=== PATIENT | female | born 1995 | race American Indian/Alaskan Native ===

== ENCOUNTER 2017-01-03 16:04 | Emergency (ER) | payer SELFPAY ==
[2017-01-03 16:36] VITALS: BP 122/78
[2017-01-03] MEDS ORDERED: NORCO 7.5/325 PO ONE (21:10)
--- NOTE | 2017-01-03 21:16 | Emergency Department Report ---
- General Chief complaint: Skin/Abscess/Foreign Body Stated complaint: BOIL UNDER LEFT ARMPIT Time Seen by Provider: 01/03/17 20:21 Source: patient Mode of arrival: Ambulatory Limitations: No Limitations - History of Present Illness Initial comments: 21-year-old female that presents with left axillary area. Patient stated has been noticed that 2 weeks ago for the past week it has gotten worse and bigger. Patient denies any fever, chills, pus or drainage. Patient also said his symptoms include pain, redness, swelling to the area. Patient denies any numbness or tingling sensation in extremities. Patient denies chest pain or shortness of breath. Patient's mother currently at bedside. Patient does seem toxic or ill in appearance. No signs of distress noted. Patient denies any chance of her being this time. MD complaint: abscess/boil (5 cm left axilla ) -: Gradual, week(s) (2) Location: LUE (left axilla) Severity: moderate Severity scale (0 -10): 8 Quality: aching Consistency: constant Worsens with: none Context: none Associated symptoms: denies other symptoms Treatments Prior to Arrival: none - Related Data Previous Rx's Medication Instructions Recorded Last Taken Type Sulfamethoxazole/Trimethoprim 1 each PO BID 7 Days 01/03/17 Unknown Rx [Bactrim DS TAB] traMADol [Ultram] 50 mg PO Q6HR PRN #12 tablet 01/03/17 Unknown Rx Allergies Allergy/AdvReac Type Severity Reaction Status Date / Time No Known Allergies Allergy Unverified 01/03/17 21:41 Abscess Boil HPI - HPI Chief Complaint: Skin/Abscess/Foreign Body Stated Complaint: BOIL UNDER LEFT ARMPIT Time Seen by Provider: 01/03/17 20:21 Home Medications: Previous Rx's Medication Instructions Recorded Last Taken Type Sulfamethoxazole/Trimethoprim 1 each PO BID 7 Days 01/03/17 Unknown Rx [Bactrim DS TAB] traMADol [Ultram] 50 mg PO Q6HR PRN #12 tablet 01/03/17 Unknown Rx Allergies/Adverse Reactions: Allergies Allergy/AdvReac Type Severity Reaction Status Date / Time No Known Allergies Allergy Unverified 01/03/17 21:41 ED Review of Systems ROS: Stated complaint: BOIL UNDER LEFT ARMPIT Other details as noted in HPI Constitutional: denies: chills, fever Eyes: denies: eye pain, eye discharge, vision change ENT: denies: ear pain, throat pain Respiratory: denies: cough, shortness of breath, wheezing Cardiovascular: denies: chest pain, palpitations Endocrine: no symptoms reported Gastrointestinal: denies: abdominal pain, nausea, diarrhea Genitourinary: denies: urgency, dysuria, discharge Musculoskeletal: denies: back pain, joint swelling, arthralgia Skin: denies: rash, lesions Neurological: denies: headache, weakness, paresthesias Psychiatric: denies: anxiety, depression Hematological/Lymphatic: denies: easy bleeding, easy bruising ED Past Medical Hx - Past Medical History Previous Medical History?: No - Surgical History Past Surgical History?: No - Social History Smoking Status: Never Smoker Substance Use Type: None, Marijuana - Medications Home Medications: Home Medications Medication Instructions Recorded Confirmed Last Taken Type Sulfamethoxazole/Trimethoprim 1 each PO BID 7 Days 01/03/17 Unknown Rx [Bactrim DS TAB] traMADol [Ultram] 50 mg PO Q6HR PRN #12 tablet 01/03/17 Unknown Rx ED Physical Exam - General Limitations: No Limitations General appearance: alert, in no apparent distress - Head Head exam: Present: atraumatic, normocephalic - Eye Eye exam: Present: normal appearance - ENT ENT exam: Present: normal exam, normal orophraynx, mucous membranes moist, TM's normal bilaterally - Neck Neck exam: Present: normal inspection - Respiratory Respiratory exam: Present: normal lung sounds bilaterally. Absent: respiratory distress - Cardiovascular Cardiovascular Exam: Present: regular rate, normal rhythm. Absent: systolic murmur, diastolic murmur, rubs, gallop - GI/Abdominal GI/Abdominal exam: Present: soft, normal bowel sounds - Extremities Exam Extremities exam: Present: normal inspection - Back Exam Back exam: Present: normal inspection - Neurological Exam Neurological exam: Present: alert, oriented X3 - Psychiatric Psychiatric exam: Present: normal affect, normal mood - Skin Skin exam: Present: warm, dry, intact, normal color, erythema, other (edema left axilla area). Absent: rash - Other Other exam information: 5 cm abscess to the left axilla. No pus. No drainage. Positive Erythema. Swelling to the site. ED Course Vital Signs 01/03/17 16:34 Temperature 98.3 F Pulse Rate 102 H Respiratory 16 Rate Blood Pressure 122/78 O2 Sat by Pulse 100 Oximetry Vital Signs 01/03/17 16:34 Temperature 98.3 F Pulse Rate 102 H Respiratory 16 Rate Blood Pressure 122/78 O2 Sat by Pulse 100 Oximetry - I & D Left Upper Chest Type of Procedure: Complex Site: 3 cm Blade Size: 11 I & D Procedure: betadine prep, sterile drapes applied, sterile dressing applied , gauze wick placed Progress: Under sterile procedure, I used Betadine to cleanse the area. I then injected 5 % Marcaine with 26 gauge 1-/2 needle with a total of 6 mL the left axilla area. With an 11 blade I made an incision about 3cm to the area. I irrigated with normal saline total volume of 20 mL to the area. Purulent drainage about 5 cc noted with minimal bleeding. 1/4 iodoform packing to the site. I did clean the area and applied sterile sterile 4 x 4 dressing to the site. Patient tolerated procedure well. No signs of distress noted. ED Medical Decision Making - Medical Decision Making ED course: 21-year-old female that presents with 5 cm abscess to the left axilla area 1- patient received [place] 7.5 by mouth in the ED. 2- under sterile procedure, I&D was performed to the site with minimal bleeding. Patient told procedure well. No signs of distress noted. 3- at the time of discharge the patient was prescribed Bactrim and Ultram. Patient was instructed not to use heavy machinery while taking the Ultram due to sedation. 4-at the time of discharge the patient does not seem toxic or ill in appearance. No signs of distress noted. 5-Patient agreed to discharge and treatment plan. I instructed the patient to finish full course of antibiotics as prescribed. 6-Patient denied any further questions at the time of discharge. Critical care attestation.: If time is entered above; I have spent that time in minutes in the direct care of this critically ill patient, excluding procedure time. ED Disposition Clinical Impression: Abscess Disposition: DISCHARGED TO HOME OR SELFCARE Is pt being admited?: No Does the pt Need Aspirin: No Condition: Stable Instructions: Tramadol (By mouth), Abscess Incision and Drainage (ED), Acute Wound Care (ED) Additional Instructions: Please follow-up with your primary care doctor in 3-5 days. Return to [facility] and 2 days for packing removal. Take full course of antibiotics as prescribed. His symptoms worsen such as increased swelling, redness, increased pus and drainage, fever or chills report back to emergency room. Prescriptions: Sulfamethoxazole/Trimethoprim [Bactrim DS TAB] 1 each PO BID 7 Days traMADol [Ultram] 50 mg PO Q6HR PRN #12 tablet PRN Reason: Pain Referrals: PRIMARY CARE, [Primary Care Provider] - 3-5 Days [facility] [Outside] - 3-[address] [facility] [Outside] - 3-5 Days Forms: Work/School Release Form(ED)
[2017-01-03] MEDS ORDERED: MARCAINE 0.5% INFILTRATI NR (22:00)
== END 2017-01-03 22:44 | disposition home or self-care (01) ==
LOC: ED 16:04
DX: L02.213 Cutaneous abscess of chest wall (principal); F12.90 Cannabis use, unspecified, uncomplicated

== ENCOUNTER 2017-01-07 07:26 | Emergency (ER) | payer SELFPAY ==
[2017-01-07 07:41] VITALS: BP 127/84
--- NOTE | 2017-01-07 08:08 | Emergency Department Report ---
ED Recheck HPI - General Chief Complaint: Recheck/Abnormal Lab/Rx Stated Complaint: FOLLOW-UP Time Seen by Provider: 01/07/17 07:44 Source: patient Mode of arrival: Ambulatory Limitations: No Limitations - History of Present Illness Initial Comments: This is a 21-year-old female that presents with packing removal from an I&D that was done 4 days ago under left axilla area. Patient denies any fever, pus , drainage, chest pain, nausea vomiting, numbness or tingling. Patient stated is currently taking antibiotics but does not remember the name. Patient denies any pain. Patient does not seem toxic or ill in appearance. No signs of rashes noted. MD Complaint: wound re-check (packing removal) -: Gradual, days(s) (4) Initial Visit For: abscess (left axilla) Returns Today for: wound recheck Symptoms Since Prior Visit: no new symptoms, improved Associated Symptoms: none. denies: fever, chills, chest pain, shortness of breath, rash, malaise, nasuea, abdominal pain - Related Data Previous Rx's Medication Instructions Recorded Last Taken Type Sulfamethoxazole/Trimethoprim 1 each PO BID 7 Days 01/03/17 Unknown Rx [Bactrim DS TAB] traMADol [Ultram] 50 mg PO Q6HR PRN #12 tablet 01/03/17 Unknown Rx Allergies Allergy/AdvReac Type Severity Reaction Status Date / Time No Known Allergies Allergy Unverified 01/03/17 21:41 ED Review of Systems ROS: Stated complaint: FOLLOW-UP Other details as noted in HPI Constitutional: denies: chills, fever Eyes: denies: eye pain, eye discharge, vision change ENT: denies: ear pain, throat pain Respiratory: denies: cough, shortness of breath, wheezing Cardiovascular: denies: chest pain, palpitations Endocrine: no symptoms reported Gastrointestinal: denies: abdominal pain, nausea, diarrhea Genitourinary: denies: urgency, dysuria, discharge Musculoskeletal: denies: back pain, joint swelling, arthralgia Skin: denies: rash, lesions Neurological: denies: headache, weakness, paresthesias Psychiatric: denies: anxiety, depression Hematological/Lymphatic: denies: easy bleeding, easy bruising ED Past Medical Hx - Past Medical History Previous Medical History?: No - Surgical History Past Surgical History?: No - Social History Smoking Status: Never Smoker Substance Use Type: None - Medications Home Medications: Home Medications Medication Instructions Recorded Confirmed Last Taken Type Sulfamethoxazole/Trimethoprim 1 each PO BID 7 Days 01/03/17 Unknown Rx [Bactrim DS TAB] traMADol [Ultram] 50 mg PO Q6HR PRN #12 tablet 01/03/17 Unknown Rx ED Physical Exam - General Limitations: No Limitations General appearance: alert, in no apparent distress - Head Head exam: Present: atraumatic, normocephalic - Eye Eye exam: Present: normal appearance - ENT ENT exam: Present: mucous membranes moist - Neck Neck exam: Present: normal inspection - Respiratory Respiratory exam: Present: normal lung sounds bilaterally. Absent: respiratory distress - Cardiovascular Cardiovascular Exam: Present: regular rate, normal rhythm. Absent: systolic murmur, diastolic murmur, rubs, gallop - GI/Abdominal GI/Abdominal exam: Present: soft, normal bowel sounds - Extremities Exam Extremities exam: Present: normal inspection - Back Exam Back exam: Present: normal inspection - Neurological Exam Neurological exam: Present: alert, oriented X3 - Psychiatric Psychiatric exam: Present: normal affect, normal mood - Skin Skin exam: Present: warm, dry, intact, normal color. Absent: rash - Other Other exam information: 3 cm open wound to the left axilla status post I&D with no sign of purulent drainage, erythema, tenderness, swelling. ED Course Vital Signs 01/07/17 07:38 Temperature 97.7 F Pulse Rate 68 Respiratory 16 Rate Blood Pressure 127/84 O2 Sat by Pulse 99 Oximetry ED Recheck MDM - Medical Decision Making ED course: 89-year-old female that presents with packing removal of a 3 cm open wound to the left axillary status post I&D 1- I instructed the patient to wash area with soap and water 3-4 times a day. I also showed the patient to put a clean dressing to the left axilla. 2- patient stated is currently taking antibiotics but doesn't remedy name. 3- I also instructed the patient to observe symptoms of purulent drainage, redness, fever, chills, uncontrollable pain and to report back to emergency room. 4- at the time of discharge the patient does not seem toxic or ill in appearance. No signs of distress noted. Patient agrees to discharge plan. No further questions noted by the patient. 5- Time of d/c a sterile dressing was applied to the area. Patient was instructed to remove the dressing and wash area with soap and water. Critical care attestation.: If time is entered above; I have spent that time in minutes in the direct care of this critically ill patient, excluding procedure time. ED Disposition Clinical Impression: Encounter for wound re-check Disposition: DISCHARGED TO HOME OR SELFCARE Is pt being admited?: No Does the pt Need Aspirin: No Condition: Stable Instructions: Acute Wound Care (ED) Additional Instructions: Observe symptoms of purulent drainage, redness, fever, chills, uncontrollable pain and to report back to emergency room if these symptoms are present. Follow-up with your primary care doctor in 3-5 days. Referrals: PRIMARY CARE, [Primary Care Provider] - 3-5 Days [facility] [Outside] - 3-5 Days Forms: Work/School Release Form(ED)
== END 2017-01-07 08:25 | disposition home or self-care (01) ==
LOC: ED 07:26
DX: Z48.00 Encounter for change or removal of nonsurgical wound dressing (principal)

== ENCOUNTER 2017-09-30 12:38 | Emergency (ER) | payer SELFPAY ==
[2017-09-30 14:44] LABS: Bacteria,Urine 1+ /HPF (Negative); Bilirubin,Urine NEG (Negative); Blood,Urine NEG (Negative); Color,Urine Yellow (Yellow); Mucus,Urine FEW /HPF; Nitrite,Urine NEG (Negative); Protein,Urine <15 mg/dL mg/dL (Negative); RBC,Urine < 1.0 /HPF (0.0-6.0); Urobilinogen,Urine < 2.0 mg/dL (<2.0); WBC,Urine < 1.0 /HPF (0.0-6.0)
[2017-09-30 14:45] LABS: HCG Qualitative,Urine Negative (Negative)
[2017-09-30 16:59] LABS: Basophils # (Auto) 0.1 K/mm3 (0.0-0.1); Basophils % (Auto) 1.1 % (0.0-1.8); Eosinophils # (Auto) 0.1 K/mm3 (0.0-0.4); Eosinophils % (Auto) 0.9 % (0.0-4.3); Hematocrit 41.8 % (30.3-42.9); Hemoglobin 13.7 gm/dl (10.1-14.3); Lymphocytes # (Auto) 2.5 K/mm3 (1.2-5.4); Lymphocytes % (Auto) 34.5 % (13.4-35.0); Mean Corpuscular HGB Conc 33 % (30-34); Mean Corpuscular Hemoglobin 31 pg (28-32); Mean Corpuscular Volume 94 fl (79-97); Monocytes # (Auto) 0.5 K/mm3 (0.0-0.8); Monocytes % (Auto) 6.4 % (0.0-7.3); Platelet Count 322 K/mm3 (140-440); Red Blood Count 4.44 M/mm3 (3.65-5.03); Red Cell Distribution Width 13.4 % (13.2-15.2)
[2017-09-30 17:20] LABS: Albumin 4.4 g/dL (3.9-5); BUN/Creatinine Ratio 15; Blood Urea Nitrogen 9 mg/dL (7-17); Calcium 9.8 mg/dL (8.4-10.2); Hemolysis Index 147
[2017-09-30 17:59] LABS: Alanine Aminotransferase 12 units/L (7-56)
[2017-10-01 00:49] VITALS: BP 131/69
== END 2017-10-01 02:40 | disposition left against medical advice (07) ==
LOC: ED 12:38
DX: R10.9 Unspecified abdominal pain (principal); Z53.21 Procedure and treatment not carried out due to patient leaving prior to being seen by health care provider
CPT/HCPCS: 36415; 80053; 81001; 81025; 85025